=== PATIENT | female | born 1985 | race Caucasian/White ===

== ENCOUNTER 2021-03-20 16:37 | Emergency (ER) | payer OTHER ==
[2021-03-20 17:54] LABS: CORONAVIRUS 2019 SARS-COV-2 NEGATIVE (NEGATIVE); INFLUENZA A NAA NEGATIVE (NEGATIVE)
[2021-03-20] MEDS ORDERED: ZYRTEC10 MG PO (18:04)
== END 2021-03-20 18:10 | disposition home or self-care (01) ==
LOC: FER 16:37
PROVIDERS: Emergency Medicine
DX: J06.9 Acute upper respiratory infection, unspecified (principal); F17.210 Nicotine dependence, cigarettes, uncomplicated; Z20.822 Contact with and (suspected) exposure to COVID-19
CPT/HCPCS: 99283; U0002

== ENCOUNTER 2021-12-08 14:17 | Emergency (ER) | payer OTHER ==
[~2021-12-08 14:17] MED LIST: ZYRTEC10 MG PO
[2021-12-08 16:07] LABS: BASOPHIL 0.2 % (0-2); EOSINOPHIL 1.6 % (0-5); HCT 35.4 % (37.0-47.0); HGB 11.3 g/dl (12.5-16.0); MCH 25.4 pg (25.0-31.0); MCHC 31.9 g/dL (32.0-36.0); MCV 79.6 fL (78.0-100.0); MPV 9.5 fL (6.0-9.5); NEUTROPHIL 75.6 % (41-80); NRBC 0; PLT 305 K/uL (150-400); RBC 4.45 M/uL (4.20-5.40); RDW 16.5 % (11.5-14.0); WBC 14.6 K/uL (4.0-10.5)
[2021-12-08 16:18] LABS: INR 1.04 (0.9-1.2); PROTHROMBIN TIME 13.3 SECONDS (11.9-13.9); PTT 26.2 SECONDS (24.9-34.6)
[2021-12-08 16:53] LABS: CORONAVIRUS 2019 SARS-COV-2 NEGATIVE (NEGATIVE); INFLUENZA A NAA NEGATIVE (NEGATIVE)
[2021-12-08 18:33] LABS: BUN/CREAT RATIO (CALC) 18.6 RATIO; CREATININE 0.59 mg/dL (0.51-0.95); POTASSIUM 3.7 mmol/L (3.5-5.1)
== END 2021-12-08 17:33 | disposition other institution (70) ==
LOC: FER 14:17
PROVIDERS: Nurse Practitioner Family
DX: S42.491B Other displaced fracture of lower end of right humerus, initial encounter for open fracture (principal); Z23 Encounter for immunization; Z28.310 Unvaccinated for COVID-19; Z20.822 Contact with and (suspected) exposure to COVID-19; W01.0XXA Fall on same level from slipping, tripping and stumbling without subsequent striking against object, initial encounter; Y92.89 Other specified places as the place of occurrence of the external cause; Y99.0 Civilian activity done for income or pay
CPT/HCPCS: 36415; 73060; 73080; 80048; 85025; 85610; 85730; 90471; 90715; 96372; J0690; J1170; J1885; J2270; U0002